=== PATIENT | female | born 1995 | race Caucasian/White ===

== ENCOUNTER 2018-11-20 11:54 | Inpatient (IN) ==
[2018-11-20] MEDS ORDERED: OXYTOCIN 30 UNITS/500 ML BAG IV PRN ×2 (12:37→12:41)
[2018-11-20] MEDS ORDERED: LACTATED RINGER'S 1,000 ML IV PRN ×3 (12:37→16:49)
[2018-11-20 13:03] LABS: Hematocrit (blood only) 37.5 % (37-47); Hemoglobin 11.6 g/dL (12.0-16.0); Mean Platelet Volume 11.1 fL (7.4-10.4); Platelet Count 195 K/uL (130-400); RDW Coefficient of Variation 14.5 % (11.5-14.5); RDW Standard Deviation 41.3 fL (36.4-46.3); Red Blood Count 4.69 M/uL (4.2-5.4); White Blood Count 8.22 K/uL (4.8-10.8)
--- NOTE | 2018-11-20 13:05 | Labor Progress Brief Note ---
Date of Service November 20, 2018 Subjective No RODRIGUEZ, RUQ pain, vision changes. Good FM, no Ctx, no LOF no VB. Sent from office for elevated BP x2 visits and pr/cr ratio 0.6, meeting criteria for mild preeclampsia at term. Plan: IOL. Assessment & Plan (1) Mild pre-eclampsia: IOL for mild preeclampsia. AROM performed for copious clear fluid, GBS neg. Starting pitocin. Trimester: third trimester Qualified Code(s): O14.03 - Mild to moderate pre-eclampsia, third trimester Physical Exam 2 Vital Signs (Past 24 Hours): Last Vital Signs Temp 37.2 C 11/20/18 12:12 Pulse 87 11/20/18 12:25 Resp 16 11/20/18 12:12 BP 135/82 11/20/18 12:25 Physical Exam: FHT Cat 1 [place] Q2min mild, not apprec by patient /-2/-soft/ant EFW 7-7.5lb
--- NOTE | 2018-11-20 13:10 | History & Physical Report ---
Date of Service November 20, 2018 Assessment & Plan (1) Mild pre-eclampsia: Admitted for Induction of Labor due to mild pre eclampsia Protein Creatinine ratio of 0.6 Pressure currently 135/82 AROM performed just before 1300 Pitocin augmentation External Monitoring applied Will continue to monitor and re examine History of Present Illness Chief Complaint: Induction of labor for Mild Pre Eclampsia Primary Care Provider: Naina Guido Ms Manuela Orta is a 23-year-old 1, para P0 at 38-2/7 weeks on the day of her admission with an estimated due date of December 02 2018, who presents for admission for induction of labor for pre eclampsia. The patient has had elevated blood pressures in office her past two visits. On 11/17 she was sent over to L and D from clinic due to pressures of 140/108 that did not improve after five minutes and some upper abdominal pain. Her pressures quickly normalized at that time and she was sent home. Today her pressure in office was 136/100 and she complained of upper right quadrant pain and spots in her vision. She was admitted to L and D for induction of labor. She denies vaginal bleeding, leaking fluid, or contractions. She reports good movement. course complicated by 1. Pre-eclampsia 2. Otherwise normal Blood Type: O+ Hemoglobin 13.5 at initial visit (05/04/18) and 10.9 at last check (11/17/18) Negative Pap Test Rubella Immune VDRL/RPR nonreactive Initial urine screen grew skin julianne Declined Hepatitis B and HIV Chlamydia: Negative Gonorrhea: Negative Initial Diabetes screen declined Anatomy Ultrasound Completed and normal GTT on 10/02 116 after 2 hours GBS negative Allergies Allergy/AdvReac Type Severity Reaction Status Date / Time No Known Allergies Allergy Unverified 01/05/14 13:06 Home Medications Home Medications Medication Instructions Recorded Confirmed Type PNV cmb#95-ferrous fumarate-FA 1 tab PO DAILY 11/20/18 11/20/18 History [] Patient History Medical History Knee arthropathy [place] teeth extracted Social History marital status: Current Living Situation: Spouse Other Information That Helps Us Care for You: No Feels Safe at Home: Yes Smoking Status: Never smoker Second Hand Exposure: No Hx Alcohol Use: No Hx Substance Use: No Beliefs That Will Affect Care: None Preferred Language: Palauan Review of Systems Constitutional: no fever, no chills, no body aches, no fatigue and no weakness Eyes: + spots in vision; no blind spots, no eye pain and no photophobia Respiratory: no cough and no dyspnea Cardiovascular: + edema (Mild right sided peda edema); no chest pain, no dyspnea and no palpitations Gastrointestinal: + abdominal pain (Upper right quadrant crampy abdominal pain) and + diarrhea/loose stools; no nausea and no vomiting Physical Exam 2 Vital Signs (Past 24 Hours): Last Vital Signs Temp 37.2 C 11/20/18 12:12 Pulse 87 11/20/18 12:25 Resp 16 11/20/18 12:12 BP 135/82 11/20/18 12:25 Constitutional: well developed, well nourished, cooperative and comfortable; no acute distress Eyes: PERRL, conjunctivae normal, anicteric sclerae EOM intact bilaterally Respiratory: normal respiratory effort; no respiratory distress and no cough Auscultation: lungs clear to auscultation bilaterally Cardiovascular: Rate/Rhythm: regular rate and regular rhythm Heart Sounds: no click, no gallop, no murmur and no cardiac rub Extremities: no calf tenderness Gastrointestinal (Abdomen): Inspection/Auscultation: abdomen normal to inspection and + abdomen distended (Term uterus) Percussion/Palpation: abdomen soft; abdomen nontender Genitourinary: Speculum/Bimanual Exam: + uterus enlarged OB Exam Abdomen: + fundal height (Term) Fundus: + firm; not tender Code Status & VTE Plan VTE Prophylaxis Plan VTE Prophylaxis will be ordered: No Reason for no VTE drug order: Treatment not indicated Reason for no VTE mechanical prophylaxis: Treatment not indicated _ (1) Mild pre-eclampsia Trimester: third trimester Qualified Code(s): O14.03 - Mild to moderate pre- eclampsia, third trimester
[2018-11-20 13:13] LABS: Mean Corpuscular Hgb Conc 30.9 g/dL (32-36)
[2018-11-20] MEDS: LACTATED RINGER'S 1,000 ML IV SCH ×2 (13:25→16:15)
[2018-11-20 13:28] LABS: Albumin Level 2.3 gm/dl (3.4-5.0); BUN Creatinine Ratio 7.9 (10-20); Calcium 8.4 mg/dl (8.5-10.1); Creatinine Clr Calc Pharmacy 128.5 ml/min; Est GFR (African American) 138.2; Est GFR (Non-African American) 119.2; Potassium 3.6 mmol/L (3.5-5.1)
[2018-11-20 13:31] LABS: Albumin Globulin Ratio 0.5 (0.9-2); Bilirubin,Total 0.2 mg/dl (0.2-1); Total Protein 7.3 gm/dl (6.4-8.2)
[2018-11-20] MEDS ORDERED: BUPIVACAINE 0.25% 30 ML VIAL ONE (16:03)
[2018-11-20] MEDS ORDERED: ePHEDrine sulfate 50 MG/ML AMP ONE (16:04)
[2018-11-20] MEDS ORDERED: fentaNYL citrate 100 MCG/2 ML VIAL ONE (16:05)
[2018-11-20] MEDS ORDERED: fentaNYL 2MCG/ML ROPIV 1.25MG/ML 100 ML BAG EPI ONE (16:05)
--- NOTE | 2018-11-20 16:21 | Anesthesiology Consultation ---
Date of Service November 20, 2018 Assessment & Plan (1) Encounter for pre-operative examination: Chart Review Chart Review: Patient NOT seen in Pre Admission Testing and Acceptable Risk for Labor Epidural Consults Requested none ASA ASA2 Proposed Anesthesia Anesthesia Type: Labor Epidural and CSE Risk / Benefits Reviewed With: PT / POA / Parent / Guardian, Accepts Plan and Informed Consent Obtained NPO Date Last Intake of Fluids: 11/20/18 Time Last Intake of Fluids: 10:00 Date Last Intake of Solids: 11/20/18 Time Last Intake of Solids: 07:30 History Height/Weight Height: 5 ft 5 in Weight: 81.108 kg Allergies Allergy/AdvReac Type Severity Reaction Status Date / Time No Known Allergies Allergy Verified 11/20/18 13:55 Medications Home Medications Medication Instructions Recorded Confirmed Last Taken PNV cmb#95-ferrous fumarate-FA 1 tab PO DAILY 11/20/18 11/20/18 11/20/18 07:30 [] 1 Active Medications Generic Name Dose Route Start Last Admin Trade Name Freq PRN Reason Stop Dose Admin Lactated Ringer's 1,000 mls @ 125 mls/hr 11/20/18 12:45 11/20/18 16:16 Lr IV 11/22/18 12:44 999 mls/hr .Q8H BRIANNA Infusion Oxytocin 30 units in 500 mls @ 3 mls/hr 11/20/18 12:41 11/20/18 15:02 Pitocin IV 11/22/18 12:40 0.18 units/hr .Q24H PRN 3 mls/hr Labor Induction/Augmentation Titration Protocol 0.18 UNITS/HR Past Medical History Medical History Knee arthropathy [place] teeth extracted Past Anesthesia History No Hx of Anesthesia Complications and No Family Hx of Anesthesia Complications History of PONV No Motion Sickness Screening History of Motion Sickness: No Social History Smoking Status: Never smoker Hx Alcohol Use: No Hx Substance Use: No substance use type: does not use Exercise / Class Metabolic Activity II 4-5 Yardwork/Stairs/Walk up hill Review of Systems no chest pain or sob Physical Exam Vital Signs Last Vital Signs Temp 36.9 C 11/20/18 15:00 Pulse 80 11/20/18 16:09 Resp 18 11/20/18 15:00 BP 137/83 11/20/18 16:09 ENMT Mouth: no TMJ abnormality Thyromental Distance: > or= 3.5 Finger Breadths Mallampati Class: II Neck normal visual inspection Respiratory normal respiratory effort Auscultation: lungs clear to auscultation bilaterally Cardiovascular Rate/Rhythm: regular rate and regular rhythm Musculoskeletal Spine: normal cervical ROM Neurologic moves all extremities Psychiatric Orientation: alert and oriented x 3 Testing Laboratory Results 11/20/18 12:50 11/20/18 12:50
[2018-11-20] MEDS ORDERED: ePHEDrine sulfate 50 MG/ML AMP IV PRN (16:49)
[2018-11-20] MEDS ORDERED: fentaNYL 2MCG/ML ROPIV 1.25MG/ML 100 ML BAG EPI PRN (16:49)
[2018-11-20] MEDS ORDERED: NALBUPHINE HCL INJ 10 MG/ML AMP IV PRN (16:49)
[2018-11-20] MEDS ORDERED: NALOXONE HCL 0.4 MG/1 ML VIAL/CARP IV PRN (16:49)
[2018-11-20] MEDS ORDERED: DiphenhydrAMINE HCL 50 MG/ML VIAL IV PRN (16:49)
[2018-11-20] MEDS ORDERED: ONDANSETRON INJ 2 MG/ML 2 ML VIAL IV PRN (16:49)
[2018-11-20] MEDS ORDERED: NALOXONE HCL 1 MG in SODIUM CHLORIDE 0.9% 1000ML 1,000 ML IV PRN (16:49)
--- NOTE | 2018-11-20 18:07 | Labor Progress Brief Note ---
Date of Service November 20, 2018 Subjective DELAYED ENTRY NOTE due to ER care of another patient Manuela now comfortable after epidural. I came to see her when Gladis RN notified me the epidural was done. Assessment & Plan (1) Mild pre-eclampsia: Continue IOL, making good progress Trimester: third trimester Qualified Code(s): O14.03 - Mild to moderate pre-eclampsia, third trimester Physical Exam 2 Vital Signs (Past 24 Hours): Last Vital Signs Temp 36.7 C 11/20/18 17:00 Pulse 78 11/20/18 18:02 Resp 18 11/20/18 15:00 BP 109/70 11/20/18 18:02 Pulse Ox 99 11/20/18 18:02 Physical Exam: FHT Cat 1 [place] Q2 Pit @ 9 Cvx /-1
--- NOTE | 2018-11-20 20:24 | Labor Progress Brief Note ---
Date of Service November 20, 2018 Subjective Patient with some pressure during contractions, no real urge to push yet, but has labored down for nearly an hour already. Assessment & Plan (1) Mild pre-eclampsia: IOL in progess, begin second stage of labor Trimester: third trimester Qualified Code(s): O14.03 - Mild to moderate pre-eclampsia, third trimester Physical Exam 2 Vital Signs (Past 24 Hours): Last Vital Signs Temp 36.9 C 11/20/18 19:02 Pulse 77 11/20/18 20:17 Resp 20 11/20/18 19:10 BP 138/65 11/20/18 20:17 Pulse Ox 100 11/20/18 20:17 Physical Exam: FHT Cat 1 [place] Q2 Cvx 10/100/+1 Test push effective
[2018-11-20] MEDS ORDERED: BISACODYL 10 MG SUPP PR PRN (22:00)
[2018-11-20] MEDS ORDERED: DIPHTHERIA/TETANUS/PERTUSSIS 0.5 ML SYR/VIAL IM ONE (22:00)
[2018-11-20] MEDS ORDERED: ACETAMINOPHEN 325 MG TAB PO PRN (22:00)
[2018-11-20] MEDS ORDERED: OXYCODONE/ACETAMINOPHEN 5mg/325mg TAB PO PRN (22:00)
[2018-11-20] MEDS ORDERED: LACTATED RINGER'S 1,000 ML IV SCH (22:00)
[2018-11-20] MEDS ORDERED: SUPERCREAM 0.870% 15 GM JAR EXT PRN (22:00)
[2018-11-20] MEDS ORDERED: HYDROCORTISONE ACETATE 25 MG SUPP PR PRN (22:00)
[2018-11-20] MEDS ORDERED: BENZOCAINE 20% AER SPR 82.5 GM CAN EXT PRN (22:00)
--- NOTE | 2018-11-20 22:11 | Procedure Note ---
Vaginal Delivery Summary Date of Service November 20, 2018 Supervising Physician Co-Signing Physician Notes Patient pushed to deliver a viable male infant in SAROJ position. The shoulders and body delivered with further maternal pushing efforts, but without any significant delay. The cord was doubly clamped and cut by the FOB. The placenta delivered S/I/3vc. A red rubber catheter was placed after betadine prep to ensure urethral identification during repair. A large, deep left sulcal laceration was identified and was repaired using 2-0 vicryl in running locked fashion. A smaller right sulcal laceration was then repaired in similar fashion. Finally, a left labia minora laceration that extended up alongside the clitoral body onto the mons was repaired. Betadine cleanse was done once again and another straight rubber catheter was placed (the previous one having been displaced during repair of the periclitoral tear). The catheter yielded clear yellow urine. It was then removed. A rectal exam was done showing no rectal injury. Counts were then done twice and were correct. Fundus firm and lochia minimal after delivery.
[2018-11-20] MEDS: IBUPROFEN 600 MG TAB PO PRN (23:28)
[2018-11-21] MEDS: IBUPROFEN 600 MG TAB PO PRN ×6 (03:14→23:58)
--- NOTE | 2018-11-21 06:30 | Obstetrical Progress Note ---
Date of Service <Kwame Ngo MD - Last Filed: 11/21/18 06:32> November 21, 2018 Assessment & Plan <Kwame Ngo MD - Last Filed: 11/21/18 06:32> (1) (spontaneous vaginal delivery): Manuela Orta is a 23 year old G 1P0 who is day 1 s/p She was induced for pre eclampsia at 38 weeks and 2 days and her symptoms and elevated blood pressure have resolved. Vital signs reviewed WNL now, hypotensive at 2330 last night when she had a syncopal episode GBS -, Blood type O+, Rubella Immune Exam normal Breast feeding well Encouraged to continue Ambulating limited to bathroom with assistance, will continue to monitor and progress activity level as tolerated Subjective <Kwame Ngo MD - Last Filed: 11/21/18 06:32> Ambulation: limited ambulation Voiding: no voiding problems Passing Gas:: Yes Diet Tolerance:: regular diet Lochia:: Moderate Feeding Type:: breast feeding Current Pain Level(1-10): 0 Ms Orta is holding baby this morning sitting up in bed. She reports that last night she passed out when she got up to go to the bathroom. She said she felt lightheaded and then lost consciousness. She's never passed out before in her life and her blood pressure dropped to 92/46 at that time. She has since been on restriction to only get up to go to the bathroom and only with assistance. No issues since last night. She feels some irritation when she urinates and some crampy abdominal pain when she breast feeds but both are controlled by motrin. Constitutional: no fever, no chills, no fatigue and no weakness Respiratory: no cough and no dyspnea Cardiovascular: + syncope; no chest pain, no dyspnea and no palpitations Gastrointestinal: no abdominal pain, no nausea and no vomiting Physical Exam <Kwame Ngo MD - Last Filed: 11/21/18 06:32> Vital Signs (Past 24 Hours) Last Vital Signs Temp 36.9 C 11/21/18 03:10 Pulse 84 11/21/18 03:10 Resp 18 11/21/18 03:10 BP 117/76 11/21/18 03:10 Pulse Ox 97 11/20/18 21:07 Constitutional well developed, well nourished, cooperative and comfortable; no acute distress Respiratory normal respiratory effort; no respiratory distress and no cough Auscultation: lungs clear to auscultation bilaterally Cardiovascular Rate/Rhythm: regular rate and regular rhythm Heart Sounds: no click, no gallop, no murmur and no cardiac rub Extremities: no calf tenderness Genitourinary OB Exam Abdomen: + fundal height Fundus: + firm and + relation to umbilicus (at) ; not tender <Arianna Tamayo MD - Last Filed: 11/21/18 08:14> Co-Signing Physician Notes Laboratory Results - last 24 hr 11/20/18 11/20/18 11/21/18 12:50 12:50 07:33 WBC 8.22 RBC 4.69 Hgb 11.6 L 8.4 L D Hct 37.5 27.0 L MCV 80.0 MCH 24.7 L MCHC 30.9 L RDW Std Deviation 41.3 RDW Coeff of Homero 14.5 Plt Count 195 MPV 11.1 H Sodium 136 Potassium 3.6 Chloride 105 Carbon Dioxide 19 L Anion Gap 13.0 H BUN 6 L Creatinine 0.71 Est Cr Clr Drug Dosing 128.5 Est GFR ( Amer) 138.2 Est GFR (Non-Af Amer) 119.2 BUN/Creatinine Ratio 7.9 L Glucose 72 Calcium 8.4 L Total Bilirubin 0.2 AST 17 ALT 13 Alkaline Phosphatase 195 H Total Protein 7.3 Albumin 2.3 L Globulin 5.0 H Albumin/Globulin Ratio 0.5 L I discussed the patient's care with nursing team, patient, and resident physician this morning. I was not notified at the time that the patient was having syncopal symptoms post-delivery. Overnight she has, however, done well with getting up to BR under supervision. The RN present for her initial episode does not believe the patient ever lost consciousness, and vitals were reassuring. This morning in light of the above I ordered a stat H&H which is above, and seems consistent with the losses that occurred during repair of her large sulcus laceration. After all of the above was done, and while I was rounding on other patients, I was notified that Manuela suddenly began to note spots in her lateral vision and had BP taken which was 160/90. The spots in the vision passed after just a few seconds, and have not returned; repeat BP after a few minutes was 140s/90s. Despite having just gotten an H&H, I now feel we need to check CBC/CMP and have increased vital signs to Q1hr or sooner prn for symptoms of PIH; pt understands and is agreeable. Manuela has mild preeclampsia and I will make the oncoming MD aware to watch for development of severe preeclampsia today.
--- NOTE | 2018-11-21 07:09 | Anesthesia Procedure Note ---
Date of Service November 21, 2018 Anesthesia Post Epidural Note Vital Signs Vital Signs: Temp Pulse Pulse Resp BP BP Pulse Ox 11/21/18 03:10 36.9 C 84 18 117/76 11/21/18 01:00 36.4 C L 86 18 115/78 11/21/18 00:15 37.1 C 18 11/21/18 00:14 90 120/70 11/21/18 00:08 92 H 120/68 11/20/18 23:58 88 119/73 11/20/18 23:48 82 115/64 11/20/18 23:38 125 H 16 108/62 11/20/18 23:28 90 107/62 11/20/18 23:17 98 H 100/54 L 11/20/18 23:15 87 92/46 L 11/20/18 23:02 107 H 110/74 11/20/18 23:00 18 11/20/18 22:47 102 H 113/85 11/20/18 22:40 16 11/20/18 22:32 105 H 113/78 11/20/18 22:25 18 11/20/18 22:17 91 H 106/57 L 11/20/18 22:10 18 11/20/18 22:02 107 H 115/65 11/20/18 21:55 18 11/20/18 21:47 94 H 132/70 11/20/18 21:40 36.9 C 18 11/20/18 21:39 87 122/71 11/20/18 21:32 88 127/62 11/20/18 21:17 137/68 11/20/18 21:13 96 H 131/68 11/20/18 21:07 98 H 97 11/20/18 21:02 148 H 99 11/20/18 20:57 133 H 99 11/20/18 20:52 97 H 99 11/20/18 20:47 97 H 99 11/20/18 20:42 129 H 99 11/20/18 20:37 123 H 100 11/20/18 20:33 84 135/71 11/20/18 20:32 87 98 11/20/18 20:27 94 H 99 11/20/18 20:26 85 89 L 11/20/18 20:22 79 99 11/20/18 20:17 77 138/65 100 11/20/18 20:12 88 100 11/20/18 20:07 83 100 11/20/18 20:02 78 137/79 100 11/20/18 19:57 80 100 11/20/18 19:52 83 100 11/20/18 19:49 80 139/88 11/20/18 19:47 82 100 11/20/18 19:42 82 100 11/20/18 19:37 90 100 11/20/18 19:34 81 132/78 11/20/18 19:32 82 100 11/20/18 19:27 91 H 100 11/20/18 19:22 75 100 11/20/18 19:19 85 134/85 11/20/18 19:17 84 100 11/20/18 19:12 87 100 11/20/18 19:10 20 11/20/18 19:07 92 H 99 11/20/18 19:02 36.9 C 88 18 132/83 100 11/20/18 18:57 87 94 11/20/18 18:52 78 100 11/20/18 18:49 79 134/89 11/20/18 18:47 85 99 11/20/18 18:42 86 99 11/20/18 18:37 88 99 11/20/18 18:33 80 146/86 H 11/20/18 18:32 82 99 11/20/18 18:30 18 11/20/18 18:27 87 99 11/20/18 18:22 87 100 11/20/18 18:18 80 117/63 11/20/18 18:17 87 99 11/20/18 18:12 78 100 11/20/18 18:07 79 99 11/20/18 18:02 78 109/70 99 11/20/18 18:00 18 11/20/18 17:57 80 99 11/20/18 17:52 77 99 11/20/18 17:48 146 H 109/65 11/20/18 17:47 77 99 11/20/18 17:42 79 99 11/20/18 17:37 82 98 11/20/18 17:33 88 114/66 11/20/18 17:32 83 100 11/20/18 17:30 18 11/20/18 17:27 95 H 98 11/20/18 17:22 75 97 11/20/18 17:18 72 109/60 11/20/18 17:17 73 97 11/20/18 17:12 75 98 11/20/18 17:07 76 98 11/20/18 17:02 79 97 11/20/18 17:01 80 112/59 L 11/20/18 17:00 36.7 C 11/20/18 16:58 86 108/57 L 11/20/18 16:57 85 98 11/20/18 16:55 97 H 106/69 11/20/18 16:52 87 102/67 99 11/20/18 16:49 100 H 134/63 11/20/18 16:47 87 98 11/20/18 16:46 88 141/64 H 11/20/18 16:44 93 H 129/65 11/20/18 16:43 82 118/64 11/20/18 16:42 97 H 98 11/20/18 16:40 80 118/68 11/20/18 16:37 88 124/57 L 98 11/20/18 16:34 100 H 151/84 H 11/20/18 16:32 81 99 11/20/18 16:31 86 139/63 11/20/18 16:28 83 148/65 H 11/20/18 16:27 78 98 11/20/18 16:26 100 H 162/78 H 11/20/18 16:22 81 99 11/20/18 16:09 80 137/83 11/20/18 15:54 75 144/84 H 11/20/18 15:00 36.9 C 18 11/20/18 14:40 86 136/77 11/20/18 13:36 71 148/85 H 11/20/18 13:00 36.7 C 16 11/20/18 12:25 87 135/82 11/20/18 12:14 37.2 C 85 16 145/87 H 11/20/18 12:12 37.2 C 85 16 145/87 H Pain Intensity Upper Abdomen: Pain Intensity: 5 Notes Mental Status: alert / awake / arousable Patient Amnestic to Procedure: Yes Nausea / Vomiting: adequately controlled Pain: adequately controlled Airway Patency, RR, SpO2: stable & adequate BP & HR: stable & adequate Hydration State: stable & adequate Anesthetic Complications: no major complications apparent and Pt Satisfied with anesthetic care Epidural: Removed without complications and With tip intact
[2018-11-21 07:52] LABS: Hemoglobin 8.4 g/dL (12.0-16.0)
[2018-11-21 08:25] LABS: Hemoglobin 8.1 g/dL (12.0-16.0); Mean Platelet Volume 10.6 fL (7.4-10.4); Platelet Count 176 K/uL (130-400); RDW Coefficient of Variation 14.5 % (11.5-14.5); RDW Standard Deviation 41.1 fL (36.4-46.3); Red Blood Count 3.25 M/uL (4.2-5.4); White Blood Count 16.55 K/uL (4.8-10.8)
[2018-11-21 08:27] LABS: Mean Corpuscular Hgb Conc 31.2 g/dL (32-36)
[2018-11-21 08:44] LABS: Albumin Level 1.7 gm/dl (3.4-5.0); BUN Creatinine Ratio 8.4 (10-20); Creatinine Clr Calc Pharmacy 138.3 ml/min; Est GFR (African American) 143.3; Est GFR (Non-African American) 123.6; Potassium 4.2 mmol/L (3.5-5.1)
[2018-11-21 08:45] LABS: Albumin Globulin Ratio 0.5 (0.9-2); Basophils # (auto) 0.02 K/uL (0-0.2); Basophils % (auto) 0.1 %; Bilirubin,Total 0.2 mg/dl (0.2-1); Eosinophils # (auto) 0.03 K/uL (0-0.5); Eosinophils % (auto) 0.2 %; Globulin 3.6 gm/dl (2.5-4.0); Immature Granulocytes # (auto) 0.03 K/uL (0.00-0.02); Immature Granulocytes % (auto) 0.2 %; Lymphocytes # (auto) 1.68 K/uL (1.2-3.4); Lymphocytes % (auto) 10.2 %; Monocytes % (auto) 4.8 %; Neutrophils # (auto) 13.99 K/uL (1.4-6.5); Neutrophils % (auto) 84.5 %; RBC Morphology Unremarkable; Total Protein 5.3 gm/dl (6.4-8.2)
[2018-11-21] MEDS: PRENATAL VITAMIN 1 TAB PO SCH (09:06)
[2018-11-21] MEDS: DOCUSATE SODIUM 100 MG CAP PO SCH ×2 (09:07→19:40)
[2018-11-21] MEDS ORDERED: LORazepam 0.5 MG/1 ML VIAL IV STA (14:00)
[2018-11-21] MEDS ORDERED: BISACODYL 5 MG TABEC PO SCH (20:00)
[2018-11-22] MEDS: IBUPROFEN 600 MG TAB PO PRN (05:12)
[2018-11-22 06:45] LABS: Hematocrit (blood only) 24.1 % (37-47); Hemoglobin 7.4 g/dL (12.0-16.0)
--- NOTE | 2018-11-22 06:52 | Obstetrical Progress Note ---
Date of Service <Kwame Ngo MD - Last Filed: 11/22/18 06:52> November 22, 2018 Assessment & Plan <Kwame Ngo MD - Last Filed: 11/22/18 06:52> (1) (spontaneous vaginal delivery): Manuela Orta is a 23 year old G 1P0 who is day 2 s/p She was induced for pre eclampsia at 38 weeks and 2 days and her symptoms and elevated blood pressure have resolved. Vital signs reviewed WNL now no longer having any presyncopal or vision symptoms Hgb 8.1 GBS -, Blood type O+, Rubella Immune Exam normal Breast feeding well Encouraged to continue Ambulation improved, no more syncopal episodes Patient ready to be d/c to home instructions and follow up discussed Subjective <Kwame Ngo MD - Last Filed: 11/22/18 06:52> Ambulation: ambulating normally Voiding: no voiding problems Passing Gas:: Yes Diet Tolerance:: regular diet Lochia:: Small Feeding Type:: breast feeding Current Pain Level(1-10): 0 Ms You resting comfortably this morning, no pain no complaints. Blood pressure has been WNL since yesterday morning. Patient expresses wish to be discharged home, went over d/c and follow up instructions and patient expressed her understanding. Constitutional: no fever and no chills Eyes: no blind spots, no eye pain and no photophobia Cardiovascular: no chest pain, no dyspnea and no palpitations Gastrointestinal: no nausea and no vomiting Physical Exam <Kwame Ngo MD - Last Filed: 11/22/18 06:52> Vital Signs (Past 24 Hours) Last Vital Signs Temp 36.4 C L 11/21/18 23:15 Pulse 76 11/21/18 23:15 Resp 20 11/21/18 23:15 BP 123/79 11/21/18 23:15 Pulse Ox 98 11/21/18 23:15 Constitutional well developed, well nourished, cooperative and comfortable; no acute distress Eyes PERRL, conjunctivae normal, anicteric sclerae EOM intact bilaterally Respiratory normal respiratory effort; no respiratory distress and no cough Auscultation: lungs clear to auscultation bilaterally Cardiovascular Rate/Rhythm: regular rate and regular rhythm Heart Sounds: no click, no gallop, no murmur and no cardiac rub Extremities: no calf tenderness Gastrointestinal (Abdomen) Inspection/Auscultation: abdomen normal to inspection and + abdomen distended ( Term uterus) Percussion/Palpation: abdomen soft; abdomen nontender Genitourinary OB Exam Abdomen: + fundal height Fundus: + firm and + relation to umbilicus (2 cm below); not tender <Marielos Barahona MD, FACOG - Last Filed: 11/22/18 08:13> Co-Signing Physician Notes Resident Physician Supervision Note: I was present with Dr. Ngo during the history and exam. I discussed the case with the resident and agree with the findings and plan as documented in the note. Any exceptions or clarifications are listed here: [None] Documented By: Marielos Barahona MD, FACOG
[2018-11-22] MEDS: DOCUSATE SODIUM 100 MG CAP PO SCH (08:31)
[2018-11-22] MEDS: PRENATAL VITAMIN 1 TAB PO SCH (08:31)
== END 2018-11-22 12:46 | disposition home or self-care (01) | DRG 807 ==
LOC: 4S1 11:54 → 4S2 11-21 01:32

== ENCOUNTER 2021-05-04 16:49 | Inpatient (IN) ==
--- NOTE | 2021-05-04 17:54 | History & Physical Report ---
Date of Service May 04, 2021 Assessment & Plan (1) : Will monitor, ambulate, recheck cervix. History of Present Illness Chief Complaint: contractions Primary Care Provider: Naina Guido DO 26yo @ 39 12/07, presents with contractions. IOL scheduled tomorrow. Membrane strip in office today. No LOF. +FM. Some bloodyish vaginal discharge. hx of pih/PET in first baby asa at 12 weeks baseline 24 hr urine.--152 mg (akh) IOL 05/11 Flu shot given 09/23/20 SB Carrier of CF *FOB negative Allergies Allergy/AdvReac Type Severity Reaction Status Date / Time No Known Allergies Allergy Verified 05/04/21 17:02 Home Medications Medication Instructions Recorded Confirmed Type PNV cmb#95-ferrous fumarate-FA 1 tab PO DAILY 11/20/18 05/04/21 History [] aspirin 81 mg PO DAILY 02/11/21 05/04/21 History Patient History Medical History History of gestational hypertension Knee arthropathy Mild pre-eclampsia Uterine prolapse Varicella vaccination Surgical History S/P knee surgery [place] teeth extracted Family History Father Hypertension Sister Spina bifida Aunt Cancer Mother Cancer Breast cancer Denies family history of Ovarian cancer Colorectal cancer Social History Smoking Status: Never smoker Second Hand Exposure: No; Hx Alcohol Use: No Hx Substance Use: No Preferred Language: Mohawk Beliefs That Will Affect Care: None marital status: marital status details: Zeeshan Orta [phone]) [phone] Current Living Situation: Spouse and Family Current Living Situation Comment: lives with spouse, son, dogs current occupational status: employed 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 No s/s chorio or abruption. Skin: no rashes, warm and dry Psychiatric: A+Ox3, euthymic affect Results & Data ([facility]) Vital Signs (Past 12 Hours) Vital Signs Temp Pulse Resp BP 05/04/21 16:59 87 129/90 05/04/21 16:57 36.8 C 18 Coding Level of Care Code None Diagnoses Z34.90
[2021-05-04] MEDS ORDERED: OXYTOCIN 30 UNITS/500 ML BAG IV PRN (19:52)
[2021-05-04 20:27] LABS: Hematocrit (blood only) 32.2 % (37-47); Hemoglobin 9.8 g/dL (12.0-16.0); Mean Corpuscular Hemoglobin 23.1 pg (25-34); Mean Corpuscular Hgb Conc 30.4 g/dL (32-36); Mean Corpuscular Volume 75.9 fL (80-100); Mean Platelet Volume 10.2 fL (7.4-10.4); Platelet Count 287 K/uL (130-400); RDW Coefficient of Variation 16.9 % (11.5-14.5); RDW Standard Deviation 46.1 fL (36.4-46.3); Red Blood Count 4.24 M/uL (4.2-5.4); White Blood Count 12.03 K/uL (4.8-10.8)
[2021-05-04] MEDS: LACTATED RINGER'S 1,000 ML IV PRN ×2 (20:40→22:20)
[2021-05-04] MEDS ORDERED: SODIUM CHLORIDE 0.9% INJ 10 ML VIAL ONE (20:58)
[2021-05-04] MEDS ORDERED: ePHEDrine sulfate 50 MG/ML AMP ONE (20:58)
[2021-05-04] MEDS ORDERED: BUPIVACAINE 0.25% 30 ML VIAL ONE (20:59)
[2021-05-04] MEDS ORDERED: fentaNYL citrate 100 MCG/2 ML VIAL ONE (20:59)
[2021-05-04] MEDS ORDERED: fentaNYL 2MCG/ML ROPIVACAINE 1.25MG/ML 100 ML BAG EPI ONE (20:59)
[2021-05-04] MEDS ORDERED: NALOXONE HCL 0.4 MG/1 ML VIAL/CARP IV PRN (22:11)
[2021-05-04] MEDS ORDERED: PROMETHAZINE HCL 6.25 MG in SODIUM CHLORIDE 0.9% 50 ML IV PRN (22:11)
[2021-05-04] MEDS ORDERED: fentaNYL 2MCG/ML ROPIVACAINE 1.25MG/ML 100 ML BAG EPI PRN (22:11)
[2021-05-04] MEDS ORDERED: ONDANSETRON INJ 2 MG/ML 2 ML VIAL IV PRN ×2 (22:11→23:09)
[2021-05-04] MEDS ORDERED: diphenhydrAMINE 50 MG/ML VIAL IV PRN (22:11)
[2021-05-04] MEDS ORDERED: ePHEDrine sulfate 50 MG/ML AMP IV PRN (22:11)
[2021-05-04] MEDS ORDERED: NALOXONE HCL 1 MG in SODIUM CHLORIDE 0.9% 1000ML 1,000 ML IV PRN (22:11)
--- NOTE | 2021-05-04 22:11 | Anesthesiology Consultation ---
Date of Service May 04, 2021 Assessment & Plan (1) Encounter for pre-operative examination: Chart Review Chart Review: Patient NOT seen in Pre Admission Testing and Acceptable Risk for Labor Epidural Consults Requested none ASA ASA2 Proposed Anesthesia Anesthesia Type: Labor Epidural Risk / Benefits Reviewed With: PT / POA / Parent / Guardian, Accepts Plan and Informed Consent Obtained History Height/Weight Height: 5 ft 6 in Weight: 78.471 kg Allergies Allergy/AdvReac Type Severity Reaction Status Date / Time No Known Allergies Allergy Verified 05/04/21 17:02 Medications Home Medications Medication Instructions Recorded Confirmed Last Taken PNV cmb#95-ferrous fumarate-FA 1 tab PO DAILY 11/20/18 05/04/21 05/03/21 07:00 [] aspirin 81 mg PO DAILY 02/11/21 05/04/21 05/03/21 07:00 Active Medications Generic Name Dose Route Start Last Admin Trade Name Freq PRN Reason Stop Dose Admin Lactated Ringer's 1,000 mls @ 125 mls/hr 05/04/21 19:52 05/04/21 20:40 Lr IV 05/06/21 19:51 999 mls/hr .Q8H PRN Administration L&D Protocol Protocol NPO Date Last Intake of Fluids: 05/04/21 Time Last Intake of Fluids: 19:00 Date Last Intake of Solids: 05/04/21 Time Last Intake of Solids: 13:00 Past Medical History Medical History History of gestational hypertension Knee arthropathy Mild pre-eclampsia Uterine prolapse Varicella vaccination Exercise / Class Metabolic Activity II 4-5 Yardwork/Stairs/Walk up hill Past Family History Family History Father Hypertension Sister Spina bifida Aunt Cancer Mother Cancer Breast cancer Denies family history of Ovarian cancer Colorectal cancer Past Surgical History Surgical History S/P knee surgery [place] teeth extracted Past Anesthesia History No Hx of Anesthesia Complications and No Family Hx of Anesthesia Complications History of PONV No Hx of PONV and No Hx of Motion Sickness Social History Smoking Status: Never smoker Hx Alcohol Use: No Hx Substance Use: No substance use type: does not use Physical Exam Vital Signs Last Vital Signs Temp 36.7 C 05/04/21 19:13 Pulse 84 05/04/21 22:09 Resp 18 05/04/21 19:13 BP 124/69 05/04/21 22:09 Pulse Ox 99 05/04/21 22:06 ENMT Mouth: no dentition abnormality Thyromental Distance: > or= 3.5 Finger Breadths Mallampati Class: II Neck normal visual inspection Respiratory normal respiratory effort Auscultation: lungs clear to auscultation bilaterally Cardiovascular Rate/Rhythm: regular rate and regular rhythm Psychiatric Orientation: alert Lab Results Anesthesia Preop Results Results Anesthesia Widget: WBC 12.03 K/uL (4.8-10.8) H 05/04/21 Hgb 9.8 g/dL (12.0-16.0) L 05/04/21 Hct 32.2 % (37-47) L 05/04/21 Plt 287 K/uL (130-400) 05/04/21 SARS-CoV-2, RNA, NAAT NEGATIVE (NEGATIVE) 05/04/21 Testing Laboratory Results 05/04/21 20:07
--- NOTE | 2021-05-04 23:58 | Labor Progress Brief Note ---
Date of Service May 04, 2021 Subjective Comfortable with epidural. AROM clear fluid. FHT Cat 1 [place] Q 2 SVE 5cm Assessment & Plan Admission and Anticipated Discharge Date Admission Date: May 04, 2021 Results & Data ([facility]) Vital Signs (Past 12 Hours) Vital Signs Temp Pulse Resp BP Pulse Ox 05/04/21 23:55 74 118/70 05/04/21 23:51 77 99 05/04/21 23:46 74 98 05/04/21 23:41 84 99 05/04/21 23:40 83 125/71 05/04/21 23:36 78 98 05/04/21 23:31 85 99 05/04/21 23:30 18 05/04/21 23:26 87 99 05/04/21 23:24 71 126/71 05/04/21 23:21 90 99 05/04/21 23:16 79 99 05/04/21 23:11 90 98 05/04/21 23:09 36.7 C 85 117/69 05/04/21 23:06 90 100 05/04/21 23:01 87 99 05/04/21 23:00 18 05/04/21 22:56 76 99 05/04/21 22:55 89 129/81 05/04/21 22:51 90 100 05/04/21 22:46 84 100 05/04/21 22:41 82 100 05/04/21 22:39 82 126/74 05/04/21 22:36 86 99 05/04/21 22:31 90 99 05/04/21 22:30 18 05/04/21 22:26 86 100 05/04/21 22:21 87 114/68 98 05/04/21 22:16 93 H 98 05/04/21 22:15 80 121/61 05/04/21 22:13 103 H 122/59 L 05/04/21 22:11 93 H 124/67 99 05/04/21 22:09 84 124/69 05/04/21 22:07 80 129/73 05/04/21 22:06 80 99 05/04/21 22:05 75 126/82 05/04/21 22:03 130/91 05/04/21 22:01 85 127/83 100 05/04/21 21:56 86 99 05/04/21 19:13 36.7 C 78 18 133/74 05/04/21 16:59 87 129/90 05/04/21 16:57 36.8 C 18 Coding Level of Care Code None
--- NOTE | 2021-05-05 02:27 | Delivery Summary ---
Vaginal Delivery Summary Date of Service May 05, 2021 Vaginal Delivery Summary [facility] Vaginal Delivery Summary: Pre-delivery diagnoses: 26yo @ 40 3/, spontaneous labor, h/o preeclampsia in prior Post-delivery diagnoses: same Procedure: spontaneous vaginal delivery, repair of periurethral laceration Surgeon: Apple Sullivan DO Complications: none Findings: Viable female . Apgars: 8/9. Weight pending, please see nursery records Estimated blood loss: 300ml Description of delivery: The patient progressed to complete with epidural anesthesia. She then began to push. She spontaneously vaginally delivered a viable from the cephalic presentation. The head delivered in SAROJ position. The anterior shoulder delivered, followed by the posterior shoulder, followed by the body. The baby was placed on mother's abdomen and a spontaneous cry was heard. The cord was doubly clamped and cut. A segment was retained for cord gases. Cord blood was obtained. The placenta was delivered spontaneously intact with a 3-vessel cord. The uterus and vagina were swept of clots and debris. IV pitocin was given. The uterus became firm. The cervix, vagina, and perineum were inspected and a bleeding periurethral laceration was noted and r epaired with 3-0 vicryl - running locked suture to achieve hemostasis. A red rubber catheter was placed during repair to ensure anatomy and avoid placement of suture into the urethra. Excellent hemostasis was observed. Patient had had a healed hole in left labia minora from prior delivery, it healed with a gap near the cephalad aspect of left labia minora - we discussed this, since it healed ok and was not bothersome after last delivery, she elected to leave this alone. The mother and baby are recovering in stable and good condition in the room. Sponge, needle and instrument counts were correct x 2. Apple Sullivan DO [facility] Vaginal Delivery Charge Vaginal Delivery Codes: 23900 global code for the antepartum, delivery, and post- Delivery Type Details: [facility]
[2021-05-05] MEDS ORDERED: BENZOCAINE 20% AER SPR 82.5 GM CAN EXT PRN (02:29)
[2021-05-05] MEDS ORDERED: SUPERCREAM 0.870% 15 GM JAR EXT PRN (02:29)
[2021-05-05] MEDS ORDERED: HYDROCORTISONE ACETATE 25 MG SUPP PR PRN (02:29)
[2021-05-05] MEDS ORDERED: ACETAMINOPHEN 325 MG TAB PO PRN (02:29)
[2021-05-05] MEDS ORDERED: oxyCODONE/ACETAMINOPHEN 5mg/325mg TAB PO PRN (02:29)
[2021-05-05] MEDS ORDERED: DIPHTHERIA/TETANUS/PERTUSSIS 0.5 ML SYR/VIAL IM ONE (02:29)
[2021-05-05] MEDS ORDERED: OXYTOCIN 30 UNITS/500 ML BAG IV PRN (02:29)
[2021-05-05] MEDS: IBUPROFEN 600 MG TAB PO PRN ×5 (03:07→19:45)
[2021-05-05] MEDS: DOCUSATE SODIUM 100 MG CAP PO SCH ×2 (07:48→19:44)
[2021-05-05] MEDS: PRENATAL VITAMIN 1 TAB PO SCH (07:48)
--- NOTE | 2021-05-05 07:51 | Anesthesia Procedure Note ---
Date of Service May 05, 2021 Anesthesia Post Epidural Note Vital Signs Vital Signs: Temp Pulse Resp BP Pulse Ox 98.1 F 75 18 122/76 98 05/05/21 05:10 05/05/21 05:10 05/05/21 05:05/05/21 05:05/05/21 05:10 Pain Intensity Abdomen: Pain Intensity: 5 Notes Mental Status: alert / awake / arousable and participated in evaluation Nausea / Vomiting: adequately controlled Pain: adequately controlled Airway Patency, RR, SpO2: stable & adequate BP & HR: stable & adequate Hydration State: stable & adequate Neuraxial Anesthesia: was administered and sensory block is resolving Anesthetic Complications: no major complications apparent and Pt Satisfied with anesthetic care Epidural: Removed without complications and With tip intact
[2021-05-06] MEDS: IBUPROFEN 600 MG TAB PO PRN ×3 (00:20→10:26)
[2021-05-06 06:23] LABS: Hematocrit (blood only) 27.6 % (37-47); Hemoglobin 8.5 g/dL (12.0-16.0)
--- NOTE | 2021-05-06 07:03 | Obstetrical Progress Note ---
Date of Service May 06, 2021 Assessment & Plan (1) History of pre-eclampsia in prior , currently : home Subjective Ambulation: ambulating normally Voiding: no voiding problems Diet Tolerance:: regular diet Lochia:: Small Feeding Type:: breast feeding Physical Exam ex neg Results & Data ([facility]) Vital Signs (Past 12 Hours) Vital Signs Temp Pulse Resp BP Pulse Ox 05/06/21 00:00 98.4 F 72 16 118/79 98 05/05/21 19:40 98.1 F 83 18 121/79 98
[2021-05-06] MEDS: PRENATAL VITAMIN 1 TAB PO SCH (08:16)
[2021-05-06] MEDS: DOCUSATE SODIUM 100 MG CAP PO SCH (08:16)
[2021-05-06] MEDS ORDERED: bisacodyL 5 MG TABEC PO SCH (20:00)
[2021-05-07] MEDS ORDERED: bisacodyL 10 MG SUPP PR PRN (06:00)
== END 2021-05-06 11:30 | disposition home or self-care (01) | DRG 807 ==
LOC: OPB 16:49 → 4S1 16:54 → 4S2 05-05 04:52

== ENCOUNTER 2024-11-29 09:07 | Inpatient (IN) ==
[2024-11-29] MEDS ORDERED: LIDOCAINE 1% LOCAL 20 ML VIAL INFIL PRN (11:30)
[2024-11-29] MEDS ORDERED: OXYTOCIN 30 UNITS/NSS 30 UNITS/500 ML BAG IV PRN ×2 (11:30→20:31)
--- NOTE | 2024-11-29 11:46 | History & Physical Report ---
Date of Service November 29, 2024 Assessment & Plan (1) Supervision of normal intrauterine in multigravida: Plan: Mayer bulb placed, 35cc sterile water. Pitocin. EFM/toco. Labs. Glucose on admission and then Q1h when in active labor. OK for epidural when she desires. Admission and Anticipated Discharge Date Admission Date: November 29, 2024 History of Present Illness Chief Complaint: IOL Primary Care Provider: Naina Guido, DO 29yo @ 38 02/04, [place] . and Delivery Plans Hx of PIH/ Pre-eclampsia in first -Low dose aspirin Carrier of CF *FOB negative Rubella non immune offer vaccine ppx GDM w/28wk glucola *Begin monthly Growth US's Polyhydramnios--> resolved Elective IOL 11/29 Allergies Allergy/AdvReac Type Severity Reaction Status Date / Time No Known Drug Allergies Allergy Verified 11/27/24 16:23 Home Medications Medication Instructions Recorded Confirmed Type acetone (urine) test (Ketone Urine #50 ea 10/05/24 11/27/24 Rx Test strips) blood sugar diagnostic (OneTouch #150 ea 10/05/24 11/27/24 Rx Verio test strips) blood-glucose meter (OneTouch #1 ea 10/05/24 11/27/24 Rx Verio Reflect Meter) lancets 33 gauge (OneTouch Delica #150 ea 10/05/24 11/27/24 Rx Plus Lancet) vit no.133-ferrous 1 tab PO DAILY 11/29/24 11/29/24 History fumarate 28 mg-folic acid 800 mcg tablet () Patient History Medical History (Updated 11/29/24 @ 11:01 by Lizz Kovacs RN) Uterine prolapse Cervical cancer screening 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 recommend screening mammo begin age 33 for pt and annual MRI age 39 Family history of breast cancer in first degree relative Mother dx age 44 + 2 gene mutations, see family hx Varicella vaccination History of gestational hypertension with first Encounter for pre-operative examination Mild pre-eclampsia first Knee arthropathy Surgical History (Updated 11/29/24 @ 11:01 by Lizz Kovacs, PAVITHRA) S/P knee surgery left knee [place] teeth extracted Family History Father Hypertension Sister Spina bifida Aunt Cancer Mother Cancer Breast cancer Denies family history of Ovarian cancer Colorectal cancer Social History (Updated 04/16/24 @ 14:24 by Mariah Willis LPN) Smoking Status: Never smoker Second Hand Exposure: No; Do You Dip or Chew Tobacco: No; Hx Alcohol Use: No Hx Substance Use: No Preferred Language: [place] Communication Ability: Effective Certified Pesticide Applicator Required: No Beliefs That Will Affect Care: None marital status: marital status details: Zeeshan Orta [phone] Current Living Situation: Spouse and Family Current Living Situation Comment: lives with spouse, 2 kids, dogs other pets no cats current occupational status: employed 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 Other Information That Helps Us Care for You: No Feels Safe at Home: Yes Safety Concerns: Feels Safe At This Time Review of Systems All systems reviewed & are unremarkable except as noted in HPI & below Physical Exam Physical Exam: FHT Cat 1 [place] irreg SVE 50/-2 Constitutional: WD/WN, vitals as above Respiratory: normal respiratory effort, lungs clear to auscultation no respiratory distress Cardiovascular: Rate/Rhythm: regular rate and regular rhythm Gastrointestinal (Abdomen): Inspection/Auscultation: abdomen normal to inspection Percussion/Palpation: abdomen soft; abdomen nontender Gravid. No s/s chorio or abruption. Skin: no rashes, warm and dry Psychiatric: A+Ox3, euthymic affect Results & Data Vital Signs (Past 12 Hours) Vital Signs Temp Pulse Resp BP 11/29/24 11:27 80 11/29/24 11:27 125/59 L 11/29/24 11:12 78 11/29/24 11:12 117/68 11/29/24 10:57 37.0 C 74 20 129/86 11/29/24 10:56 74 129/86 11/29/24 10:55 20 11/29/24 10:55 37.0 C 20 Coding Level of Care Code None Diagnoses Supervision of normal intrauterine in multigravida Z34.80
[2024-11-29 12:18] LABS: Hematocrit (blood only) 36.9 % (37.0-47.0); Hemoglobin 11.6 g/dl (12.0-16.0); Mean Corpuscular Hemoglobin 25.2 pg (25.0-34.0); Mean Corpuscular Hgb Conc 31.4 g/dL (32.0-36.0); Mean Platelet Volume 10.9 fL (9.4-12.4); Platelet Count 232 K/uL (130-400); RDW Coefficient of Variation 13.8 % (11.5-14.5); RDW Standard Deviation 39.5 fL (36.4-46.3); Red Blood Count 4.61 M/uL (4.20-5.40)
[2024-11-29] MEDS: OXYTOCIN 30 UNITS/NSS 30 UNITS/500 ML BAG IV PRN (12:40)
[2024-11-29] MEDS: SODIUM CHLORIDE 0.9% 1,000 ML IV SCH (13:16)
--- NOTE | 2024-11-29 16:57 | Anesthesiology Consultation ---
Date of Service November 29, 2024 Assessment & Plan (1) Encounter for pre-operative examination: Chart Review Chart Review: Acceptable Risk for Labor Epidural History Height/Weight Height: 5 ft 6 in Weight: 81.647 kg Allergies Allergy/AdvReac Type Severity Reaction Status Date / Time No Known Drug Allergies Allergy Verified 11/27/24 16:23 Medications Home Medications Medication Instructions Recorded Confirmed Last Taken acetone (urine) test (Ketone Urine #50 ea 10/05/24 11/27/24 Unknown Test strips) blood sugar diagnostic (OneTouch #150 ea 10/05/24 11/27/24 Unknown Verio test strips) blood-glucose meter (OneTouch #1 ea 10/05/24 11/27/24 Unknown Verio Reflect Meter) lancets 33 gauge (OneTouch Delica #150 ea 10/05/24 11/27/24 Unknown Plus Lancet) vit no.133-ferrous 1 tab PO DAILY 11/29/24 11/29/24 11/29/24 07:00 fumarate 28 mg-folic acid 800 mcg tablet () Active Medications Generic Name Dose Route Start Last Admin Trade Name Freq PRN Reason Stop Dose Admin Oxytocin 30 units in 500 mls @ 13 mls/hr 11/29/24 11:30 11/29/24 15:45 Pitocin 30 Units/Nss IV 12/01/24 11:29 0.78 units/hr .Q24H PRN 13 mls/hr Labor Induction/Augmentation Titration Protocol 0.78 UNITS/HR Sodium Chloride 1,000 mls @ 50 mls/hr 11/29/24 13:00 11/29/24 13:16 Nss IV 11/30/24 12:59 50 mls/hr .Q20H BRIANNA Administration Past Medical History Medical History Uterine prolapse Cervical cancer screening 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 Technician recommend screening mammo begin age 33 for pt and annual MRI age 39 Family history of breast cancer in first degree relative Mother dx age 44 + 2 gene mutations, see family hx Varicella vaccination History of gestational hypertension with first Encounter for pre-operative examination Mild pre-eclampsia first Knee arthropathy Past Family History Family History Father Hypertension Sister Spina bifida Aunt Cancer Mother Cancer Breast cancer + for two pathogenic Variants WARREN c.8482 C>T (p.[id number]*), heterozygous, pathogenic CHEK2 c.1100del(p.[id number]*15), heterozygous, pathogenic Denies family history of Ovarian cancer Colorectal cancer Past Surgical History Surgical History S/P knee surgery left knee [place] teeth extracted Social History Smoking Status: Never smoker Do You Dip or Chew Tobacco: No Hx Alcohol Use: No Hx Substance Use: No substance use type: does not use Physical Exam Vital Signs Last Vital Signs Temp 36.9 C 11/29/24 16:01 Pulse 74 11/29/24 16:01 Resp 20 11/29/24 16:01 BP 120/72 11/29/24 16:01 Testing Laboratory Results 11/29/24 11:58 11/29/24 11:58 Blood Type O Positive 11/29/24 12:01 Antibody Screen NEGATIVE 11/29/24 12:01
[2024-11-29] MEDS: BUPIVACAINE 0.25% PF 30 ML VIAL ONE (17:14)
[2024-11-29] MEDS: fentaNYL citrate PF 100 MCG/2 ML VIAL ONE (17:14)
[2024-11-29] MEDS: LIDOCAINE 2%/EPINEPHRINE 1:200,000 20 ML PF ONE (17:18)
[2024-11-29] MEDS: fentANYL 2 MCG/ML BUPIVacaine 0.125%-NSS 100ML BAG ONE (17:19)
[2024-11-29] MEDS ORDERED: BUPIVACAINE 0.25% PF 30 ML VIAL EPI PRN (17:21)
[2024-11-29] MEDS ORDERED: NALOXONE HCL 0.4 MG/1 ML VIAL/CARP IV PRN (17:21)
[2024-11-29] MEDS ORDERED: SODIUM CHLORIDE 0.9% PF INJ 10 ML VIAL EPI PRN (17:21)
[2024-11-29] MEDS ORDERED: fentaNYL citrate PF 100 MCG/2 ML VIAL EPI PRN (17:21)
[2024-11-29] MEDS ORDERED: ROPIVACAINE 0.5% PF 5 MG/ML 20 ML VIAL EPI PRN (17:21)
[2024-11-29] MEDS ORDERED: LIDOCAINE 2% MPF LOCAL 5 ML VIAL EPI PRN (17:21)
[2024-11-29] MEDS ORDERED: fentANYL 2 MCG/ML BUPIVacaine 0.125%-NSS 100ML BAG EPI PRN (17:21)
[2024-11-29] MEDS ORDERED: NALOXONE HCL 1 MG in SODIUM CHLORIDE 0.9% 1,000 ML IV PRN (17:21)
[2024-11-29] MEDS ORDERED: ePHEDrine sulfate 50 MG/ML AMP IV PRN (17:21)
[2024-11-29] MEDS: SODIUM CHLORIDE 0.9% PF INJ 10 ML VIAL ONE (17:28)
[2024-11-29] MEDS: ePHEDrine sulfate 50 MG/ML AMP ONE (17:28)
[2024-11-29] MEDS: ONDANSETRON INJ 2 MG/ML 2 ML VIAL IV PRN (18:18)
--- NOTE | 2024-11-29 20:24 | Delivery Summary ---
Vaginal Delivery Summary Date of Service November 29, 2024 Vaginal Delivery Summary [facility] Vaginal Delivery Summary: Pre-delivery diagnoses: 29yo @ 39 4/7, eIOL, GDMA1, rubella non-immune, h/o preeclampsia prior Post-delivery diagnoses: same Procedure: spontaneous vaginal delivery Surgeon: Apple Sullivan DO Complications: none Findings: Viable male . Apgars: 8/9 . Weight pending, please see nursery records Estimated blood loss: 100ml Description of delivery: The patient progressed to complete with epidural anesthesia. She then spontaneously vaginally delivered a viable from the cephalic presentation. The head delivered in SAROJ position. The anterior shoulder delivered, followed by the posterior shoulder, followed by the body. Nuchal cord x 1, easily reduced. The baby was placed on mother's abdomen and a spontaneous cry was heard. Delayed cord clamping was employed, and the cord was doubly clamped and cut. Cord blood was obtained. The placenta was delivered spontaneously intact with a 3-vessel cord. The uterus and vagina were swept of clots and debris. IV pitocin was given. The uterus became firm. The cervix, vagina, and perineum were inspected and no lacerations were noted. Excellent hemostasis was observed. The mother and baby are recovering in stable and good condition in the room. Sponge and instrument counts were correct x 2. Apple Sullivan [facility] Vaginal Delivery Charge Vaginal Delivery Codes: 22472 global code for the antepartum, delivery, and post- Delivery Type Details: [facility]
[2024-11-29] MEDS ORDERED: bisacodyL 10 MG SUPP PR PRN (20:31)
[2024-11-29] MEDS ORDERED: ACETAMINOPHEN 325 MG TAB PO PRN (20:31)
[2024-11-29] MEDS ORDERED: BENZOCAINE 20% SPRY 85 APPLN/85 GM CAN EXT PRN (20:31)
[2024-11-29] MEDS ORDERED: HYDROCORTISONE ACETATE 25 MG SUPP PR PRN (20:31)
[2024-11-29] MEDS ORDERED: oxyCODONE/ACETAMINOPHEN 5mg/325mg TAB PO PRN (20:31)
[2024-11-29] MEDS: SODIUM CHLORIDE 0.9% PF INJ 10 ML VIAL EPI STA (20:53)
[2024-11-29] MEDS: BUPIVACAINE 0.25% PF 30 ML VIAL EPI STA (20:53)
[2024-11-29] MEDS: fentaNYL citrate PF 100 MCG/2 ML VIAL EPI STA (20:53)
[2024-11-29] MEDS: LIDOCAINE 2%/EPINEPHRINE 1:200,000 20 ML PF EPI STA (20:53)
--- NOTE | 2024-11-29 21:22 | Anesthesia Procedure Note ---
Date of Service November 29, 2024 Anesthesia Post Epidural Note Vital Signs Vital Signs: Temp Pulse Resp BP Pulse Ox 36.4 C L 80 20 122/72 100 11/29/24 19:00 11/29/24 21:16 11/29/24 19:00 11/29/24 21:16 11/29/24 20:01 Notes Mental Status: alert / awake / arousable and participated in evaluation Nausea / Vomiting: adequately controlled Pain: adequately controlled Airway Patency, RR, SpO2: stable & adequate BP & HR: stable & adequate Hydration State: stable & adequate Neuraxial Anesthesia: was administered and sensory block is resolving Anesthetic Complications: no major complications apparent Epidural: Removed without complications and With tip intact
[2024-11-29] MEDS: DIPHTHER/TETAN/PERTUS Vaccine (Tdap, Adol/Adult) 0.5mL IM ONE (21:29)
[2024-11-30] MEDS: IBUPROFEN 600 MG TAB PO PRN (03:47)
[2024-11-30 07:38] LABS: Hematocrit (blood only) 33.2 % (37.0-47.0); Hemoglobin 10.5 g/dl (12.0-16.0)
[2024-11-30] MEDS: DOCUSATE SODIUM 100 MG CAP PO SCH (08:11)
[2024-11-30] MEDS: PRENATAL VITAMIN 1 TAB PO SCH (08:11)
--- NOTE | 2024-11-30 08:12 | Obstetrical Progress Note ---
Date of Service November 30, 2024 Assessment & Plan (1) Encounter for assessment: Plan: Patient is PPD 1 s/p and doing well - Eating well, voiding well, ambulating well - vitals reviewed and within normal limits - pain well controlled with analgesics - OOB, ambulation, diet progression as tolerated - Blood type: O+, GBS neg, rubella equivocal - Plan to discharge today pending baby circumcision and void - After discharge, 6 week follow up with OBGYN Admission and Anticipated Discharge Date Admission Date: November 29, 2024 Supervising Physician Co-Signing Physician Notes Resident Physician Supervision Note: I interviewed and examined the patient. Discussed with Dr. Graf and agree with findings and plan as documented in the note. Any exceptions or clarifications are listed here: PPD#1 doing well. Desires DC home this evening. Reviewed instructions. Documented By: Apple Sullivan, Subjective 29 yo post- day 1 s/p Ambulation: ambulating normally Voiding: no voiding problems Passing Gas:: Yes Diet Tolerance:: regular diet Lochia:: Small Feeding Type:: breast feeding Current Pain Level:0/10 Resting comfortably this AM in NAD. Denies RODRIGUEZ, CP, SOB, N/V/D, LE pain/swelling. Physical Exam Physical Exam: General: patient resting comfortably, NAD, non-toxic in appearance, answers questions appropriately. Skin: warm, dry, intact HEENT: NC/AT, anicteric sclera, conjunctiva without injection, moist mucus membranes. Heart: +S1/S2, regular, no m/r/g Lungs: equal air entry bilaterally, no rales/rhonchi/wheezes Abd: +BS, soft, NT/ND, uterine fundus firm at umbilicus Ext: warm, no clubbing/cyanosis or edema Neuro: nonfocal, speech intact, no facial droop, moving all extremities. Results & Data Vital Signs (Past 12 Hours) Vital Signs Temp Pulse Pulse Resp BP BP Pulse Ox 11/30/24 03:40 36.7 C 82 16 116/72 97 11/29/24 23:06 36.6 C 78 18 128/81 98 11/29/24 22:31 80 137/62 11/29/24 22:16 82 121/62 11/29/24 22:01 82 125/80 11/29/24 22:00 20 11/29/24 21:46 86 138/86 11/29/24 21:30 20 11/29/24 21:16 80 11/29/24 21:16 122/72 11/29/24 21:00 69 11/29/24 21:00 123/60 11/29/24 20:46 71 11/29/24 20:46 122/57 L 11/29/24 20:16 82 11/29/24 20:16 174/70 H O2 Del Method 11/30/24 03:40 Room Air 11/29/24 23:06 Room Air 11/29/24 22:31 11/29/24 22:16 11/29/24 22:01 11/29/24 22:00 11/29/24 21:46 11/29/24 21:30 11/29/24 21:16 11/29/24 21:16 11/29/24 21:00 11/29/24 21:00 11/29/24 20:46 11/29/24 20:46 11/29/24 20:16 11/29/24 20:16 Resident Activity Tracking Resident Involvement: Resident Care Provided Care Provided: OB Delivery
[2024-11-30] MEDS ORDERED: MEASLES, MUMPS & RUBELLA VIRUS VACCINE (MMR) 0.5ML VIAL SQ ONE (09:00)
[2024-11-30 17:52] VITALS: BP 127/85; PULSE 78; RESP 20; TEMP 98.4; O2SAT 97
[2024-11-30] MEDS ORDERED: bisacodyL 5 MG TABEC PO SCH (20:00)
== END 2024-11-30 20:45 | disposition home or self-care (01) | DRG 807 ==
LOC: 4S1 10:45 → 4E2 23:07